=== PATIENT | male | born 1995 | race Hispanic/Latino ===

== ENCOUNTER 2018-10-28 23:15 | Emergency (ER) | payer OTHER ==
[2018-10-29] MEDS ORDERED: DEXAMETHASONE SOD PHOSPHATE 10MG/ML 1ML VIAL ONE (00:16)
[2018-10-29] MEDS ORDERED: KETOROLAC TROMETHAMINE 60 MG/2 ML VIAL ONE (00:17)
[2018-10-29] MEDS ORDERED: CYCLOBENZAPRINE HCL 10 MG TABLET ONE (00:17)
== END 2018-10-29 01:33 | disposition home or self-care (01) ==
LOC: EDH 23:15
DX: S33.5XXA Sprain of ligaments of lumbar spine, initial encounter (principal); X50.0XXA Overexertion from strenuous movement or load, initial encounter; Y93.89 Activity, other specified; Y92.89 Other specified places as the place of occurrence of the external cause; Y99.8 Other external cause status
CPT/HCPCS: 96372 ×2; 99284; J1100; J1885

== ENCOUNTER 2021-11-24 20:05 | Emergency (ER) | payer OTHER ==
[~2021-11-24] VITALS: Ht 190.5 cm; Wt 135.6 kg
[2021-11-24 22:18] VITALS: BP 128/79
[2021-11-24] MEDS ORDERED: IBUP-2070 PO (22:23)
[2021-11-24] MEDS ORDERED: CYCL10TA16 PO (22:23)
== END 2021-11-24 22:32 | disposition home or self-care (01) ==
LOC: EDH 20:05
DX: S01.111A Laceration without foreign body of right eyelid and periocular area, initial encounter (principal); S01.112A Laceration without foreign body of left eyelid and periocular area, initial encounter; M79.18 Myalgia, other site; V49.49XA Driver injured in collision with other motor vehicles in traffic accident, initial encounter; Y93.89 Activity, other specified; Y92.413 State road as the place of occurrence of the external cause; Y99.8 Other external cause status
CPT/HCPCS: 72040; 72070